=== PATIENT | female | born 1995 | race Caucasian/White ===

== ENCOUNTER 2019-02-02 16:48 | Emergency (ER) | payer OTHER ==
[2019-02-02 17:02] VITALS: TEMP 98.9; BMI 22.2
--- NOTE | 2019-02-02 17:48 | PDOC ---
History of Present Illness - General Stated Complaint: ABD PAIN Time Seen by Provider: 02/02/19 17:48 - History of Present Illness Initial Comments: 02/02/19 17:50 23 year old woman ROS GENERAL/CONSTITUTIONAL: No fever or chills. No weakness. HEAD, EYES, EARS, NOSE AND THROAT: No change in vision. No ear pain or discharge. No sore throat. CARDIOVASCULAR: No chest pain or shortness of breath RESPIRATORY: No cough, wheezing, or hemoptysis. GASTROINTESTINAL: No nausea, vomiting, diarrhea or constipation. GENITOURINARY: No dysuria, frequency, or change in urination. MUSCULOSKELETAL: No joint or muscle swelling or pain. No neck or back pain. SKIN: No rash NEUROLOGIC: No headache, vertigo, loss of consciousness, or change in strength/ sensation. ENDOCRINE: No increased thirst. No abnormal weight change HEMATOLOGIC/LYMPHATIC: No anemia, easy bleeding, or history of blood clots. ALLERGIC/IMMUNOLOGIC: No hives or skin allergy. PE GENERAL: Awake, alert, and fully oriented, in no acute distress HEAD: No signs of trauma, normocephalic, atraumatic EYES: PERRLA, EOMI, sclera anicteric, conjunctiva clear ENT: Auricles normal inspection, hearing grossly normal, nares patent, oropharynx clear without exudates. Moist mucosa NECK: Normal ROM, supple, no lymphadenopathy, JVD, or masses LUNGS: No distress, speaks full sentences, clear to auscultation bilaterally HEART: Regular rate and rhythm, normal S1 and S2, no murmurs, rubs or gallops, peripheral pulses normal and equal bilaterally. ABDOMEN: Soft, nontender, normoactive bowel sounds. No guarding, no rebound. No masses EXTREMITIES : Normal inspection, Normal range of motion, no edema. No clubbing or cyanosis. NEUROLOGICAL: Cranial nerves II through XII grossly intact. Normal speech, normal gait, no focal sensorimotor deficits SKIN: Warm, Dry, normal turgor, no rashes or lesions noted MDM DDX including but not limited to: W/U: - TX: - Scores: ED Course: Patient stable for discharge. Informed of all lab and imaging results. Given follow up instructions and strict return precautions. Patient expressed understanding and agree to plan. Assistant District Attorney #: Vaishali Luo, PGY2 Emergency Medicine Past History - Past Medical History Allergies/Adverse Reactions: Allergies Allergy/AdvReac Type Severity Reaction Status Date / Time No Known Allergies Allergy Verified 02/02/19 17:02 Home Medications: Ambulatory Orders No Home Medications 0 dose .ROUTE UTDICT 09/05/13 COPD: No - Immunization History Immunization Up to Date: Yes - Psycho Social/Smoking Cessation Hx Smoking History: Never smoked Have you smoked in the past 12 months: No Information on smoking cessation initiated: No Hx Alcohol Use: No Drug/Substance Use Hx: No Substance Use Type: None *Physical Exam - Vital Signs Last Vital Signs Temp Pulse Resp BP Pulse Ox 98.9 F 73 22 H 119/74 100 02/02/19 16:59 02/02/19 16:59 02/02/19 16:59 02/02/19 16:59 02/02/19 16:59 Discharge - Follow up/Referral Referrals: Nicolasa Whitehead MD [Primary Care Provider] - - Patient Discharge Instructions - Post Discharge Activity
[2019-02-02 18:53] LABS: BASO % 0.3 % (0-2.0); EOS % 1.7 % (0-4.5); HEMATOCRIT 40.3 % (32.4-45.2); HEMOGLOBIN 13.1 GM/dL (10.7-15.3); LYMPH % 14.2 % (8-40); MCH 30.2 pg (25.7-33.7); MCHC 32.5 g/dl (32.0-36.0); MEAN CELL VOLUME 92.9 fl (80-96); MEAN PLT VOLUME 10.9 fl (7.5-11.1); MONO % 6.2 % (3.8-10.2); NEUT % 77.6 % (42.8-82.8); PLATELET COUNT 235 K/MM3 (134-434); RBC 4.34 M/mm3 (3.60-5.2); RDW 14.7 % (11.6-15.6); WHITE BLOOD COUNT 12.9 K/mm3 (4.0-10.0)
--- NOTE | 2019-02-02 19:00 | PDOC ---
History of Present Illness - General Chief Complaint: Vaginal Bleeding Stated Complaint: ABD PAIN Time Seen by Provider: 02/02/19 17:48 - History of Present Illness Initial Comments: 02/02/19 19:00 CHIEF COMPLAINT: miscarriage HISTORY OF PRESENT ILLNESS: 23 yo F presents to ED with lower abdominal pain and vaginal bleeding. Patient states she took the pill on Tuesday that was given to her by local tanker truck driver Minal White to help her pass a miscarriage and started having significant cramping today. Patient's LMP was sometime in November; patient states she does not know how far along she was in her when she miscarried. No recent travel or sick contacts. PAST MEDICAL HISTORY: Denies past medical history FAMILY HISTORY: Denies SOCIAL HISTORY: Denies tobacco, alcohol, illicit drug use. SURGICAL HISTORY: Denies ALLERGIES: No known drug allergies REVIEW OF SYSTEMS General/Constitutional: Denies fever or chills. Denies weakness, weight change. HEENT: Denies change in vision. Denies ear pain or discharge. Denies sore throat. Cardiovascular: Denies chest pain or shortness of breath. Respiratory: Denies cough, wheezing, or hemoptysis. Gastrointestinal: Abdominal cramping. Denies nausea, vomiting, diarrhea or constipation. Denies rectal bleeding. Genitourinary: Vaginal bleeding with clots. Musculoskeletal: Denies joint or muscle swelling or pain. Denies neck or back pain. Skin and breasts: Denies rash or easy bruising. Neurologic: Denies headache, vertigo, loss of consciousness, or loss of sensation. Psychiatric: Denies depression or anxiety. PHYSICAL EXAM General Appearance: Well-appearing, appropriately dressed. No apparent distress , no intoxication. HEENT: EOMI, PERRLA, normal ENT inspection, normal voice, TMs normal, pharynx normal. No conjunctival pallor. No photophobia, scleral icterus. Neck: Supple. Trachea midline. No tenderness, rigidity, carotid bruit, stridor , lymphadenopathy, or thyromegaly. Respiratory/Chest: Lungs CTAB. No shortness of breath, chest tenderness, respiratory distress, accessory muscle use. No crackles, rales, rhonchi, stridor , wheezing, dullness Cardiovascular: RRR. S1, S2. No JVD, murmur, bradycardia, tachycardia. Vascular Pulses: Dorsalis-Pedis (R): 2+, Dorsalis-Pedis (L): 2+ Gastrointestinal/Abdominal: Normal bowel sounds. Abdomen soft, non-distended. No tenderness or rebound tenderness. No organomegaly, pulsatile mass, guarding , hernia, hepatomegaly, splenomegaly. Pelvic: External genitalia normal without lesions. Vaginal vault with marked bloody discharge and clots. Cervix open and actively passing clots. No cervical motion tenderness. Uterus is nontender and normal in size. Adnexa are nontender and without masses. Lymphatic: No adenopathy, tenderness. Musculoskeletal/Extremities: Normal inspection. FROM of all extremities, normal capillary refill. Pelvis Stable. No CVA tenderness. No tenderness to extremities, pedal edema, swelling, erythema or deformity. Integumentary: Appropriate color, dry, warm. No cyanosis, erythema, jaundice or rash Neurologic: life scientist II-XII intact. Fully oriented, alert. Appropriate mood/affect. Motor strength 5/5. No appreciable EOM palsy, facial droop or sensory deficit. Past History - Past Medical History Allergies/Adverse Reactions: Allergies Allergy/AdvReac Type Severity Reaction Status Date / Time No Known Allergies Allergy Verified 02/02/19 17:02 Home Medications: Ambulatory Orders No Home Medications 0 dose .ROUTE UTDICT 09/05/13 Ibuprofen 800 mg PO TID #30 tablet 02/02/19 COPD: No - Immunization History Immunization Up to Date: Yes - Psycho Social/Smoking Cessation Hx Smoking History: Never smoked Have you smoked in the past 12 months: No Information on smoking cessation initiated: No Hx Alcohol Use: No Drug/Substance Use Hx: No Substance Use Type: None *Physical Exam - Vital Signs Last Vital Signs Temp Pulse Resp BP Pulse Ox 98.9 F 73 22 H 119/74 100 02/02/19 16:59 02/02/19 16:59 02/02/19 16:59 02/02/19 16:59 02/02/19 16:59 ED Treatment Course - LABORATORY CBC & Chemistry Diagram: 02/02/19 18:10 02/02/19 18:10 - ADDITIONAL ORDERS Additional order review: Laboratory Results 02/02/19 18:10 Blood Type Cancelled Antibody Screen Cancelled 02/02/19 18:10 RBC 4.34 MCV 92.9 MCHC 32.5 RDW 14.7 MPV 10.9 Neutrophils % 77.6 Lymphocytes % 14.2 Monocytes % 6.2 Eosinophils % 1.7 Basophils % 0.3 Medical Decision Making - Medical Decision Making 02/02/19 19:16 23 yo F presents to ED with lower abdominal pain and vaginal bleeding. -T&S, labs -TVUS Patient actively miscarrying. H&H stable. 02/02/19 21:29 Patient states she has an appointment with OBGYN this Tuesday for follow up. Advised patient to keep appointment for continued evaluation throughout her miscarriage and of signs and symptoms for return to ER. Patient verbalized understanding and agrees to plan. Discharge - Discharge Information Problems reviewed: Yes Clinical Impression/Diagnosis: Miscarriage Condition: Stable Disposition: HOME - Admission No - Additional Discharge Information Prescriptions: Ibuprofen 800 mg PO TID #30 tablet - Follow up/Referral Referrals: Nicolasa Whitehead MD [Primary Care Provider] - - Patient Discharge Instructions Patient Printed Discharge Instructions: DI for Miscarriage, Dealing With Miscarriage Additional Instructions: Please take medication as prescribed. As discussed, you must keep your appointment with your OBGYN this Tuesday for continued monitoring of your miscarriage. If you develop fever, chills, vomiting, diarrhea, severe bleeding (more than one soaked pad an hour), palpitations, dizziness, headache, or any new or concerning symptoms, please return to the ER immediately. - Post Discharge Activity
[2019-02-02 19:14] LABS: ALBUMIN 3.9 g/dl (3.4-5.0); BILIRUBIN,TOTAL 0.2 mg/dL (0.2-1); BLOOD UREA NITROGEN 5.4 mg/dL (7-18); CALCIUM 9.2 mg/dL (8.5-10.1); CREATININE 0.5 mg/dL (0.55-1.3); POTASSIUM 3.4 mmol/L (3.5-5.1); TOT PROT 7.5 g/dl (6.4-8.2)
[2019-02-02 20:01] LABS: PROTHROMBIN TIME (PATIENT) 11.8 SEC (9.7-13.0)
[2019-02-02 20:04] LABS: ACTIVATED PTT 30.8 SECONDS (25.2-36.5)
[2019-02-02 22:10] VITALS: BP 120/72; PULSE 82
== END 2019-02-02 22:10 | disposition home or self-care (01) ==
LOC: JER 16:48
DX: O26.899 Other specified pregnancy related conditions, unspecified trimester (principal); O02.1 Missed abortion; Z3A.00 Weeks of gestation of pregnancy not specified
CPT/HCPCS: 36415; 76817-TC; 80053; 84702; 85025; 85610; 85730; 86850; 86900; 86901; 99283-25

== ENCOUNTER 2019-12-04 00:33 | Emergency (ER) | payer OTHER ==
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
[2019-12-04] MEDS ORDERED: ACETAMINOPHEN 500 MG TABLET (FP) PO ONE (01:35)
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
[2019-12-04 01:40] VITALS: BMI 17.6
[2019-12-04] MEDS ORDERED: ACETAMINOPHEN 325 MG TABLET (FP) ONE (02:27)
[2019-12-04 05:01] VITALS: BP 102/44; PULSE 72; TEMP 97.3
== END 2019-12-04 04:40 | disposition home or self-care (01) ==
LOC: JER 00:33
DX: S89.92XA Unspecified injury of left lower leg, initial encounter (principal)
CPT/HCPCS: 73552-TC-LT-FY; 73590-TC-LT-FY; 73610-TC-LT-FY; 73630-TC-LT; 93971-TC; 99285-25

== ENCOUNTER 2019-12-06 02:49 | Emergency (ER) | payer OTHER ==
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
[2019-12-06] MEDS ORDERED: ACETAMINOPHEN 500 MG TABLET (FP) PO ONE (03:22)
[2019-12-06] MEDS ORDERED: ACETAMINOPHEN 500 MG TABLET (FP) ONE (03:32)
[2019-12-06 03:44] VITALS: BMI 21.4
[2019-12-06 04:33] VITALS: BP 113/65; PULSE 82; TEMP 98.9
== END 2019-12-06 04:59 | disposition home or self-care (01) ==
LOC: JER 02:49
DX: S89.92XA Unspecified injury of left lower leg, initial encounter (principal)
CPT/HCPCS: 99283-25

== ENCOUNTER 2020-06-10 14:52 | Inpatient (IN) | payer OTHER ==
[2020-06-10] MEDS ORDERED: PROMETHAZINE HCL 25 MG/1 ML VIAL IVPUSH ONE (15:34)
[2020-06-10] MEDS ORDERED: BUTORPHANOL TARTRATE 1 MG/ML VIAL IVPB ONE (15:34)
[2020-06-10] MEDS ORDERED: DEXTROSE 5%-LACTATED RINGERS 1,000 ML IV SCH (15:45)
[2020-06-10 15:49] LABS: BASO % 0.5 % (0-2.0); EOS % 2.1 % (0-4.5); HEMATOCRIT 31.4 % (32.4-45.2); HEMOGLOBIN 10.4 GM/dL (10.7-15.3); LYMPH % 19.3 % (8-40); MCH 27.7 pg (25.7-33.7); MCHC 33.1 g/dl (32.0-36.0); MEAN CELL VOLUME 83.8 fl (80-96); MEAN PLT VOLUME 9.7 fl (7.5-11.1); MONO % 6.8 % (3.8-10.2); NEUT % 71.3 % (42.8-82.8); PLATELET COUNT 310 K/MM3 (134-434); RBC 3.75 M/mm3 (3.60-5.2); RDW 15.9 % (11.6-15.6); WHITE BLOOD COUNT 11.4 K/mm3 (4.0-10.0)
[2020-06-10 16:01] LABS: INR 0.87 (0.83-1.09); PROTHROMBIN TIME (PATIENT) 10.8 SEC (9.7-13.0)
[2020-06-10 16:04] LABS: ACTIVATED PTT 27.3 SECONDS (25.2-36.5)
[2020-06-10 16:09] LABS: POTASSIUM 3.5 mmol/L (3.5-5.1)
[2020-06-10 16:10] LABS: BLOOD UREA NITROGEN 9.2 mg/dL (7-18); CALCIUM 8.4 mg/dL (8.5-10.1)
[2020-06-10] MEDS ORDERED: DINOPROSTONE 10 MG VAGINAL SUPPOSITORY VG ONE ×2 (16:10→19:30)
[2020-06-10 16:14] LABS: CREATININE 0.5 mg/dL (0.55-1.3)
[2020-06-10] MEDS ORDERED: SODIUM PHOSPHATE/NA BIPHOS 133 ML ENEMA PR ONE (16:35)
[2020-06-10 18:25] VITALS: BMI 23.0
[2020-06-10 19:02] LABS: EPI CELLS 33 /uL (0-25.1); HYALINE CASTS 14 /uL (0-3.1); PH,URINE 5.5 (5.0-8.0); URINE APPEARANCE CLOUDY; URINE BACTERIA 936 /uL (0-1359); URINE BILIRUBIN NEGATIVE (NEGATIVE); URINE COLOR DK YELLOW; URINE GLUCOSE (UA) NEGATIVE (NEGATIVE); URINE KETONE 1+ (NEGATIVE); URINE LEUK ESTERASE TRACE (NEGATIVE); URINE NITRITE NEGATIVE (NEGATIVE); URINE PROTEIN 1+ (NEGATIVE); URINE RBC 6 /uL (0-23.9); URINE WBC 149 /uL (0-25.8)
[2020-06-10] MEDS ORDERED: BUTORPHANOL TARTRATE 2 MG/ML VIAL ONE (21:13)
[2020-06-10] MEDS ORDERED: PROMETHAZINE HCL 25 MG/1 ML VIAL ONE (21:13)
[2020-06-10] MEDS ORDERED: AMPICILLIN - 2 GM in SODIUM CHLORIDE 100 ML IVPB ONE (22:00)
[2020-06-10] MEDS ORDERED: AMPICILLIN SODIUM 2 GM VIAL ONE (22:24)
[2020-06-10] MEDS ORDERED: SODIUM CHLORIDE 100 ML IVPB ONE (22:25)
[2020-06-10] MEDS ORDERED: FENTANYL/BUPIVACAINE/NS/PF - PCEA - 50 ML DISP.SYRIN EP ONE (22:48)
[2020-06-10] MEDS ORDERED: PCA PUMP NR ONE (22:48)
[2020-06-10] MEDS ORDERED: OXYTOCIN 20 UNITS in 0.9% NS 20 UNIT/1,000 ML INFUS.BAG IV ONE (22:49)
[2020-06-10] MEDS ORDERED: LIDOCAINE HCL 1% PRESERVATIVE FREE - 30ML VIAL ONE (22:49)
[2020-06-10] MEDS ORDERED: NALOXONE HCL 0.4 MG/ML VIAL IVPUSH PRN (23:28)
[2020-06-10] MEDS ORDERED: FENTANYL/BUPIVACAINE/NS/PF - PCEA - 50 ML DISP.SYRIN EP SCH (23:30)
[2020-06-11] MEDS ORDERED: AMPICILLIN SODIUM 1 GM VIAL ONE (01:27)
[2020-06-11] MEDS ORDERED: SODIUM CHLORIDE 100 ML IVPB ONE (01:27)
[2020-06-11] MEDS ORDERED: AMPICILLIN - 1 GM in SODIUM CHLORIDE 100 ML IVPB SCH (02:00)
[2020-06-11 02:53] LABS: CORD BASE EXCESS -9.2 mmol/L (0-2); CORD HCO3 21.8 mmHg (20-29); CORD PCO2 73.3 mmHg (30-78); CORD pH 7.091 (7.14-7.44)
[2020-06-11 02:54] LABS: CORD BASE EXCESS -5.5 mmol/L (0-2); CORD HCO3 23.6 mmHg (20-29); CORD PCO2 61.8 mmHg (30-78); CORD pH 7.199 (7.14-7.44)
[2020-06-11] MEDS ORDERED: BENZOCAINE 20% 57 GM BOTTLE TP PRN (03:00)
[2020-06-11] MEDS ORDERED: BENZOCAINE 28 GM HEMORRHOIDAL OINTMENT TP PRN (03:00)
[2020-06-11] MEDS ORDERED: WITCH HAZEL 50% (TUCKS) 40 PAD/JAR PAD TP PRN (03:00)
[2020-06-11] MEDS ORDERED: OXYTOCIN 20 UNITS in 0.9% NS 20 UNIT/1,000 ML INFUS.BAG IV SCH (03:00)
[2020-06-11] MEDS ORDERED: BISACODYL 10 MG SUPP.RECT RC PRN (03:00)
[2020-06-11] MEDS ORDERED: METHYLERGONOVINE MALEATE 0.2 MG/1 ML AMP IM PRN (03:00)
[2020-06-11] MEDS: ACETAMINOPHEN 325 MG TABLET (FP) PO PRN ×2 (04:18→17:39)
[2020-06-11] MEDS: IBUPROFEN 600 MG TABLET (FP) PO PRN ×2 (04:19→17:38)
[2020-06-11] MEDS: FERROUS SO4 325 MG TABLET (FP) PO SCH ×2 (08:40→16:37)
[2020-06-11] MEDS: PRENATAL VITAMINS W/ FOLIC ACID TABLET (FP) PO SCH (09:41)
[2020-06-11] MEDS: AMOX TR/POT CLAV 500MG/125MG TABLETS (FP) PO SCH (23:09)
[2020-06-12] MEDS: ACETAMINOPHEN 325 MG TABLET (FP) PO PRN (08:21)
[2020-06-12] MEDS: AMOX TR/POT CLAV 500MG/125MG TABLETS (FP) PO SCH (08:22)
[2020-06-12] MEDS: IBUPROFEN 600 MG TABLET (FP) PO PRN (08:22)
[2020-06-12] MEDS: FERROUS SO4 325 MG TABLET (FP) PO SCH ×2 (08:22→17:43)
[2020-06-12 08:39] LABS: BASO % 0.3 % (0-2.0); EOS % 1.3 % (0-4.5); HEMATOCRIT 29.8 % (32.4-45.2); HEMOGLOBIN 9.5 GM/dL (10.7-15.3); LYMPH % 13.8 % (8-40); MCH 27.5 pg (25.7-33.7); MEAN CELL VOLUME 85.8 fl (80-96); MEAN PLT VOLUME 10.1 fl (7.5-11.1); MONO % 5.7 % (3.8-10.2); NEUT % 78.9 % (42.8-82.8); PLATELET COUNT 247 K/MM3 (134-434); RBC 3.47 M/mm3 (3.60-5.2); WHITE BLOOD COUNT 14.1 K/mm3 (4.0-10.0)
[2020-06-12] MEDS: CEPHALEXIN MONOHYDRATE 500 MG CAPSULE (UD) PO SCH ×2 (11:34→21:29)
[2020-06-12] MEDS: PRENATAL VITAMINS W/ FOLIC ACID TABLET (FP) PO SCH (11:34)
[2020-06-12] MEDS ORDERED: SENNOSIDES/DOCUSATE COMBO (SENNA PLUS) TABLET (UD) PO PRN (22:00)
[2020-06-12 23:41] VITALS: BP 100/62; PULSE 78; TEMP 97.6
[2020-06-13] MEDS: FERROUS SO4 325 MG TABLET (FP) PO SCH (08:46)
[2020-06-13] MEDS: PRENATAL VITAMINS W/ FOLIC ACID TABLET (FP) PO SCH (10:21)
[2020-06-13] MEDS: CEPHALEXIN MONOHYDRATE 500 MG CAPSULE (UD) PO SCH (10:21)
== END 2020-06-13 13:10 | disposition home or self-care (01) | DRG 560 ==
LOC: JLDR 14:52 → J3W 06-11 04:02
PROVIDERS: ADMIT Obstetrics & Gynecology; ATTEND Obstetrics & Gynecology
PROC: 3E0P7VZ Introduction of Hormone into Female Reproductive, Via Natural or Artificial Opening (ICD-10-PCS; principal; 2020-06-10)
PROC: 10E0XZZ Delivery of Products of Conception, External Approach (ICD-10-PCS; 2020-06-11)
PROC: 10907ZC Drainage of Amniotic Fluid, Therapeutic from Products of Conception, Via Natural or Artificial Opening (ICD-10-PCS; 2020-06-11)
PROC: 0W8NXZZ Division of Female Perineum, External Approach (ICD-10-PCS; 2020-06-11)
DX: O36.5930 Maternal care for other known or suspected poor fetal growth, third trimester, not applicable or unspecified (principal); O23.43 Unspecified infection of urinary tract in pregnancy, third trimester; B96.20 Unspecified Escherichia coli [E. coli] as the cause of diseases classified elsewhere; O99.02 Anemia complicating childbirth; D64.9 Anemia, unspecified; O99.824 Streptococcus B carrier state complicating childbirth; B95.1 Streptococcus, group B, as the cause of diseases classified elsewhere; Z3A.38 38 weeks gestation of pregnancy; Z37.0 Single live birth
CPT/HCPCS: 36415; 36600; 59409; 80048; 81003; 82803; 85025; 85610; 85730; 86780; 86850; 86900; 86901; 87086; 87186; C9803; U0003

== ENCOUNTER 2023-09-11 21:13 | Inpatient (IN) | payer OTHER ==
[2023-09-11 22:17] LABS: BASO % 0.3 % (0-2.0); EOS % 0.5 % (0-4.5); HEMATOCRIT 36.6 % (32.4-45.2); HEMOGLOBIN 12.4 GM/dL (10.7-15.3); LYMPH % 20.9 % (8-40); MCH 29.2 pg (25.7-33.7); MCHC 33.8 g/dl (32.0-36.0); MEAN CELL VOLUME 86.4 fl (80-96); MEAN PLT VOLUME 8.8 fl (7.5-11.1); MONO % 5.6 % (3.8-10.2); NEUT % 72.7 % (42.8-82.8); PLATELET COUNT 318 10^3/uL (134-434); RBC 4.24 M/mm3 (3.60-5.2); RDW 14.2 % (11.6-15.6); WHITE BLOOD COUNT 13.9 K/mm3 (4.0-10.0)
[2023-09-11 22:25] LABS: INR 1.09 (0.83-1.09); PROTHROMBIN TIME (PATIENT) 12.5 SEC (9.7-13.0)
[2023-09-11 22:27] LABS: ACTIVATED PTT 33.4 SECONDS (25.2-36.5)
[2023-09-11 22:34] LABS: POTASSIUM 3.5 mmol/L (3.5-5.1)
[2023-09-11 22:36] LABS: CALCIUM 8.5 mg/dL (8.5-10.1)
[2023-09-11 22:37] LABS: ALBUMIN 3.1 g/dl (3.4-5.0); BLOOD UREA NITROGEN 7.1 mg/dL (7-18)
[2023-09-11 22:40] LABS: CREATININE 0.6 mg/dL (0.55-1.3)
[2023-09-11 22:42] LABS: BILIRUBIN,TOTAL 0.2 mg/dL (0.2-1); TOT PROT 8.4 g/dl (6.4-8.2)
[2023-09-11] MEDS ORDERED: KETOROLAC TROMETHAMINE 30 MG/1 ML VIAL ONE (22:50)
[2023-09-11] MEDS: KETOROLAC TROMETHAMINE 30 MG/1 ML VIAL IVPUSH ONE (22:54)
[2023-09-11] MEDS ORDERED: AMPICILLIN NA/SULBACTAM NA 3 GM/100 ML BAG IVPB ONE (22:56)
[2023-09-11] MEDS: AMPICILLIN NA/SULBACTAM NA 3 GM in SODIUM CHLORIDE 100 ML IVPB ONE (23:04)
[2023-09-12] MEDS: ACETAMINOPHEN 1000 MG/100 ML BAG IVPB ONE (00:50)
[2023-09-12] MEDS ORDERED: HEPARIN NA (PORCINE) 5,000 UNITS/ML 1ML VIAL SQ SCH (06:00)
[2023-09-12 08:02] LABS: HEMATOCRIT 33.8 % (32.4-45.2); HEMOGLOBIN 11.3 GM/dL (10.7-15.3); MCHC 33.4 g/dl (32.0-36.0); MEAN CELL VOLUME 86.9 fl (80-96); PLATELET COUNT 298 10^3/uL (134-434); RBC 3.89 M/mm3 (3.60-5.2); WHITE BLOOD COUNT 11.5 K/mm3 (4.0-10.0)
[2023-09-12 08:16] VITALS: BMI 26.2
[2023-09-12 08:25] LABS: POTASSIUM 3.5 mmol/L (3.5-5.1)
[2023-09-12 08:32] LABS: URIC ACID 3.5 mg/dL (2.6-7.2)
[2023-09-12 08:40] LABS: ALBUMIN 2.8 g/dl (3.4-5.0); BLOOD UREA NITROGEN 11.2 mg/dL (7-18); CALCIUM 8.3 mg/dL (8.5-10.1)
[2023-09-12 08:41] LABS: BILIRUBIN,TOTAL 0.3 mg/dL (0.2-1); TOT PROT 7.7 g/dl (6.4-8.2)
[2023-09-12 08:43] LABS: CREATININE 0.5 mg/dL (0.55-1.3); PHOSPHOROUS 3.8 mg/dL (2.5-4.9)
[2023-09-12] MEDS: ENOXAPARIN NA (PORCINE) 40 MG/0.4 ML DISP.SYRIN SQ SCH (09:46)
[2023-09-12 14:49] VITALS: RESP 18
[2023-09-12 21:12] LABS: EPI CELLS 17 /uL (0-25.1); HYALINE CASTS 0 /uL (0-3.1); URINE APPEARANCE CLEAR; URINE BACTERIA 17 /uL (0-1359); URINE BILIRUBIN NEGATIVE (NEGATIVE); URINE COLOR YELLOW; URINE GLUCOSE (UA) NEGATIVE (NEGATIVE); URINE KETONE NEGATIVE (NEGATIVE); URINE LEUK ESTERASE TRACE (NEGATIVE); URINE NITRITE NEGATIVE (NEGATIVE); URINE PROTEIN NEGATIVE (NEGATIVE); URINE RBC 41 /uL (0-23.9); URINE UROBILINOGEN 0.2 mg/dL (0.2-1.0); URINE WBC 50 /uL (0-25.8)
[2023-09-13] MEDS: IBUPROFEN 200 MG TABLET PO PRN (00:35)
[2023-09-13 09:20] LABS: HIV INTERPRETATION NEGATIVE (NEGATIVE)
[2023-09-13] MEDS: guaiFENesin 200 MG/10 ML 10 ML UNIT-DOSE CUPS PO PRN (17:14)
[2023-09-14] MEDS ORDERED: ALBUTEROL SO4 HFA INHALER IH PRN (07:52)
[2023-09-14] MEDS: LORATADINE 10 MG TABLET PO SCH (09:43)
[2023-09-14 09:53] VITALS: BP 102/52; PULSE 83; TEMP 98.8
== END 2023-09-14 11:49 | DRG 346 ==
LOC: JER 21:13 → JERBED 22:49 → J8W 09-12 04:57
PROVIDERS: ADMIT Internal Medicine; ATTEND Nurse Practitioner Family
DX: M32.9 Systemic lupus erythematosus, unspecified (principal); N91.5 Oligomenorrhea, unspecified; M13.0 Polyarthritis, unspecified
CPT/HCPCS: 36415; 71046-TC-FY; 80053; 81003; 82550; 83735; 84100; 84550; 84702; 85025; 85027; 85379; 85610; 85651; 85730; 86038; 86140; 86431; 86618; 87389; 87491; 87591; 87633; 93005; 93010; 93971-TC; 97116-GP; 97161-GP; 99285-25; J0131

== ENCOUNTER 2023-10-21 10:05 | Inpatient (IN) | payer OTHER ==
[2023-10-21 14:57] LABS: BASO % 0.4 % (0-2.0); HEMOGLOBIN 12.6 GM/dL (10.7-15.3); LYMPH % 23.5 % (8-40); MCH 28.6 pg (25.7-33.7); MCHC 33.3 g/dl (32.0-36.0); MEAN CELL VOLUME 86.1 fl (80-96); MEAN PLT VOLUME 7.3 fl (7.5-11.1); MONO % 6.7 % (3.8-10.2); NEUT % 68.4 % (42.8-82.8); PLATELET COUNT 404 10^3/uL (134-434); RBC 4.41 M/mm3 (3.60-5.2); RDW 14.2 % (11.6-15.6); WHITE BLOOD COUNT 12.4 K/mm3 (4.0-10.0)
[2023-10-21 15:32] LABS: ERYTHROCYTE SEDIMENTATION RATE 92 mm/hr (0-20)
[2023-10-21 15:35] LABS: POTASSIUM 4.1 mmol/L (3.5-5.1)
[2023-10-21 15:37] LABS: CALCIUM 9.7 mg/dL (8.5-10.1)
[2023-10-21 15:38] LABS: ALBUMIN 3.4 g/dl (3.4-5.0); BLOOD UREA NITROGEN 8.7 mg/dL (7-18)
[2023-10-21 15:41] LABS: CREATININE 0.6 mg/dL (0.55-1.3)
[2023-10-21 15:42] LABS: TOT PROT 9.2 g/dl (6.4-8.2)
[2023-10-21 15:43] LABS: BILIRUBIN,TOTAL 0.2 mg/dL (0.2-1)
[2023-10-21] MEDS ORDERED: VANCOMYCIN 1 GRAM (PRE-DOCKED) 1,000 MG/250 ML BAG IVPB ONE (16:03)
[2023-10-21] MEDS: VANCOMYCIN 1,000 MG in DEXTROSE 5%-WATER - 250 ML IVPB ONE (16:04)
[2023-10-21] MEDS ORDERED: PIPERACILLIN/TAZOB 3.375 GM 3.375 GM in DEXTROSE 5%-WATER - 50 ML IVPB SCH (18:00)
[2023-10-21] MEDS: PIPERACILLIN/TAZOB 3.375 GM 3.375 GM in DEXTROSE 5%-WATER - 50 ML IVPB SCH (22:40)
[2023-10-21] MEDS: ACETAMINOPHEN 325 MG TABLET (FP) PO ONE (23:51)
[2023-10-22 01:45] VITALS: BMI 25.2
[2023-10-22 09:26] LABS: BASO % 0.4 % (0-2.0); EOS % 1.2 % (0-4.5); HEMATOCRIT 34.8 % (32.4-45.2); HEMOGLOBIN 11.9 GM/dL (10.7-15.3); LYMPH % 20.9 % (8-40); MCH 29.4 pg (25.7-33.7); MCHC 34.2 g/dl (32.0-36.0); MEAN CELL VOLUME 86.1 fl (80-96); MEAN PLT VOLUME 8.2 fl (7.5-11.1); NEUT % 70.5 % (42.8-82.8); PLATELET COUNT 379 10^3/uL (134-434); RBC 4.03 M/mm3 (3.60-5.2); RDW 14.2 % (11.6-15.6); WHITE BLOOD COUNT 10.3 K/mm3 (4.0-10.0)
[2023-10-22 09:32] LABS: INR 1.1 (0.83-1.09); PROTHROMBIN TIME (PATIENT) 12.4 SEC (9.7-13.0)
[2023-10-22 09:49] LABS: POTASSIUM 4.1 mmol/L (3.5-5.1)
[2023-10-22 09:51] LABS: CALCIUM 9.2 mg/dL (8.5-10.1)
[2023-10-22 09:52] LABS: BLOOD UREA NITROGEN 9.6 mg/dL (7-18)
[2023-10-22 09:55] LABS: CREATININE 0.7 mg/dL (0.55-1.3)
[2023-10-22 09:56] LABS: BILIRUBIN,TOTAL 0.5 mg/dL (0.2-1); TOT PROT 8.3 g/dl (6.4-8.2)
[2023-10-22] MEDS: ENOXAPARIN NA (PORCINE) 40 MG/0.4 ML DISP.SYRIN SQ SCH (12:07)
[2023-10-22] MEDS: PIPERACILLIN/TAZOB 3.375 GM 3.375 GM in DEXTROSE 5%-WATER - 50 ML IVPB SCH ×2 (19:26→22:05)
[2023-10-22] MEDS: VANCOMYCIN/WATER FOR INJ (PEG) 1,000 MG/200 ML BAG IVPB SCH ×2 (20:06→20:18)
[2023-10-23 00:54] VITALS: RESP 18
[2023-10-23] MEDS: ACETAMINOPHEN 325 MG TABLET (FP) PO ONE (01:30)
[2023-10-23] MEDS: ACETAMINOPHEN 500 MG TABLET (FP) PO PRN (13:50)
[2023-10-25] MEDS: POLYETHYLENE GLYCOL (HEALTHYLAX) 3350 17 GM PACKET PO SCH (12:13)
[2023-11-02 11:36] VITALS: BP 107/54; PULSE 71; TEMP 97.9
== END 2023-11-02 13:47 | disposition home or self-care (01) | DRG 385 ==
LOC: JER 10:05 → JERBED 16:13 → J5S 18:34
PROVIDERS: ADMIT Family Medicine; ATTEND Family Medicine
PROC: 0H9T3ZX Drainage of Right Breast, Percutaneous Approach, Diagnostic (ICD-10-PCS; principal; 2023-10-24)
DX: N61.1 Abscess of the breast and nipple (principal)
CPT/HCPCS: 36415; 70551-TC; 76642-TC-RT; 76942-TC; 80053; 82962; 84146; 84443; 84702; 84703; 85025; 85610; 85651; 86140; 87040; 87070; 87075; 87186; 87205; 87899; 88305-TC; 97116-GP; 97161-GP; 99285-25; G0480

== ENCOUNTER → 2024-01-11 | Day surgery (SDC) | payer OTHER | END | disposition home or self-care (01) | LOC: JRADUS-SUR 11:09 | PROVIDERS: ATTEND Registered Nurse | PROC: 0H9T3ZX Drainage of Right Breast, Percutaneous Approach, Diagnostic (ICD-10-PCS; principal; 2024-01-11) | DX: N63.11 Unspecified lump in the right breast, upper outer quadrant (principal) | CPT/HCPCS: 19083; 76642-TC-RT; 76942-TC; 87899; 88305-TC; 88312-TC; 88342-TC; A4648 ==

== ENCOUNTER 2024-05-28 15:26 | Emergency (ER) | payer OTHER ==
[2024-05-28 15:42] VITALS: BP 111/64; PULSE 98; RESP 20; TEMP 98.2; BMI 31.3
[2024-05-28] MEDS ORDERED: IBUPROFEN 400 MG TABLET (FP) PO ONE (17:07)
[2024-05-28] MEDS: IBUPROFEN 400 MG TABLET (FP) PO ONE (17:11)
== END 2024-05-28 17:12 | disposition home or self-care (01) ==
LOC: JERFT 15:26
DX: N64.4 Mastodynia (principal)
CPT/HCPCS: 99283-25